=== PATIENT | female | born 1960 | race Caucasian/White ===

== ENCOUNTER → 2016-05-28 17:04 | Outpatient (CLI) | payer BC | END | disposition home or self-care (01) | LOC: D.MAMMO 04-30 16:15 | DX: Z12.31 Encounter for screening mammogram for malignant neoplasm of breast (principal) ==

== ENCOUNTER → 2016-07-25 08:47 | Outpatient (CLI) | payer BC | END | disposition home or self-care (01) | LOC: D.CT 08:47 | DX: R10.9 Unspecified abdominal pain (principal); K43.9 Ventral hernia without obstruction or gangrene ==

== ENCOUNTER → 2016-08-22 12:46 | Outpatient (CLI) | payer BC ==
[2016-08-22 15:14] LABS: AMYLASE - SERUM 38 U/L (25-115); LIPASE 192 U/L (73-393)
== END | disposition home or self-care (01) ==
LOC: D.LABREF 12:46
PROVIDERS: Family Medicine
DX: R10.9 Unspecified abdominal pain (principal)

== ENCOUNTER → 2017-06-02 17:08 | Outpatient (CLI) | payer BC | END | disposition home or self-care (01) | LOC: D.MAMMO 16:15 | DX: Z12.31 Encounter for screening mammogram for malignant neoplasm of breast (principal) ==

== ENCOUNTER 2017-12-04 10:12 | Emergency (ER) | payer BC ==
[~2017-12-04] VITALS: Ht 162.6 cm; Wt 79.5 kg
[2017-12-04 10:15] VITALS: Ht 162.6 cm; Wt 79.5 kg
[2017-12-04] MEDS ORDERED: LEVOXYL75 MCG PO (10:17)
[2017-12-04] MEDS ORDERED: COZAAR100 MG PO (10:17)
[2017-12-04] MEDS ORDERED: METFORMIN HCL500 M1 PO (10:17)
[2017-12-04] MEDS ORDERED: PRAVACHOL40 MG PO (10:17)
[2017-12-04] MEDS ORDERED: VICTOZA0.6 MG/0.1 SQ (10:17)
[2017-12-04] MEDS ORDERED: LEXAPRO20 MG PO (10:18)
[2017-12-04 13:05] LABS: BASOPHILS 0.8 % (0-2); EOSINOPHILS 1.7 % (0-7); HEMATOCRIT 42.2 % (36.0-48.0); HEMOGLOBIN 14.6 g/dL (12-16); IMMATURE GRANULOCYTES 1.1 % (0-5); LYMPHOCYTES 17.6 % (15-50); MCH 32.4 pg (26.0-34.0); MCHC 34.6 g/dL (31.0-37.0); MCV 93.8 fL (80.0-100.0); MEAN PLATELET VOLUME 9.6 fL (7.4-10.4); MONOCYTES 17.8 % (2-11); PLATELET COUNT 167 10x3/uL (130-400); WBC 3.5 10x3/uL (4.8-10.8)
[2017-12-04 13:17] LABS: ALBUMIN 3.7 g/dL (3.4-5.0); ALKALINE PHOSPHATASE 110 U/L (46-116); ALT (SGPT) 37 U/L (10-68); BILIRUBIN - TOTAL 0.44 mg/dL (0.2-1.3); CALC OSMOLALITY 278 mosm/kg (275-300); CALCIUM 9.2 mg/dL (8.5-10.1); CARBON DIOXIDE 26.8 mmol/L (21.0-32.0); CHLORIDE - SERUM 103 mmol/L (98-107); CREATININE - SERUM 0.7 mg/dL (0.6-1.3); GLUCOSE 91 mg/dL (74-106); POTASSIUM - SERUM 4.4 mmol/L (3.5-5.1); PROTEIN - SERUM 7.1 g/dL (6.4-8.2); SODIUM 139 mmol/L (136-145); UREA NITROGEN 14 mg/dL (7-18); eGFR NON AFRICAN AMERICAN > 90 mL/min (90-120)
[2017-12-04 13:54] VITALS: BP 132/80
== END 2017-12-04 13:55 | disposition home or self-care (01) ==
LOC: D.ER 10:12
PROVIDERS: Emergency Medicine
DX: S22.32XA Fracture of one rib, left side, initial encounter for closed fracture (principal); W18.30XA Fall on same level, unspecified, initial encounter; Y93.89 Activity, other specified; Y92.89 Other specified places as the place of occurrence of the external cause; H54.7 Unspecified visual loss; I63.81 Other cerebral infarction due to occlusion or stenosis of small artery; E11.9 Type 2 diabetes mellitus without complications

== ENCOUNTER → 2018-06-17 19:28 | Outpatient (CLI) | payer BC ==
[2017-12-04 10:15] VITALS: BMI 30.1
[~2018-06-17 19:28] MED LIST: COZAAR100 MG PO; LEVOXYL75 MCG PO; LEXAPRO20 MG PO; METFORMIN HCL500 M1 PO; PRAVACHOL40 MG PO; VICTOZA0.6 MG/0.1 SQ
== END | disposition home or self-care (01) ==
LOC: D.MAMMO 09:15
PROVIDERS: ATTEND Family Medicine
DX: Z12.31 Encounter for screening mammogram for malignant neoplasm of breast (principal)

== ENCOUNTER 2019-01-10 10:56 | Observation (INO) | payer BC ==
[~2019-01-10] VITALS: Ht 162.6 cm; Wt 80.0 kg
[2019-01-10] VITALS (7 sets, daily range): BP systolic 104–139; BP diastolic 66–85
--- NOTE | ~2019-01-10 | HEMODYNAMI ---
PATIENT:CARTER CHAKRABORTY MEDICAL RECORD: [id number] : 56 [facility]# [id number] ADMISSION DATE: 01/10/19 Generatedon:01/12/201913:08 Patient name: CARTER CHAKRABORTY Patient #: [id number] : 1960 Date of study: 01/12/2019 Page: Of Hemodynamic Procedure Report Patient Data Patient Demographics Procedure consent was obtained First Name: CARTER Gender: Female Last Name: MYLENE : 1960 Middle Initial: TEJAL Age: 58 year(s) Patient #: [id number] Race: SSN: [id number] Additional ID: [id number] Contact details Address: [address] [place] [address] DRIVE State: [place] City: [place] Zip code: [address] Admission Admission Data Admission Date: 01/10/2019 Admission Time: 14:27 Arrival Date: 01/10/2019 Arrival Time: 14:27 Admit Source: Emergency Insurance Payor: Private department health insurance Room #: D.2119 [facility] #: [id number] Lab Results Lab Result Date: 01/12/2019 Lab Result Time: 0:00 Biochemistry Name Units Result Min Max BUN mg/dl 14 --(--*-)-- 7 18 Creatinine mg/dl 0.9 --(-*--)-- 0.6 1.3 eGFR ml/min 67.78452 *-(----)-- 90 120 NONAFRICAN CBC Name Units Result Min Max Hemoglobin g/dl 15.2 --(-*--)-- 13.5 17.5 Procedure Procedure Types Cath Procedure Diagnostic Procedure [facility] w/Coronaries FFR/IVUS FFR Initial FFR Additional Sedation Charges Moderate Sedation up to 30 minutes PCI Procedure Coronary Stent Coronary Stent Initial x2 Coronary Stent Additional Procedure Description Procedure Date Procedure Date: 01/12/2019 Procedure Start Time: 12:28 Procedure End Time: 13:00 Procedure Staff Name Function Paris Reynaga RT Monitor Elian Talbert MD Performing Physician Thais Osborn RN Nurse Xiao Dalal RT Scrub Procedure Data Cath Procedure Fluoroscopy Diagnostic fluoroscopy Total fluoroscopy Time: 9.3 time: 9.3 min min Diagnostic fluoroscopy Total fluoroscopy dose: dose: 1349 mGy 1349 mGy Entry Location Entry Primary Successful Side Size Upsize Upsize Entry Closure Succes sful Closure Location (Fr) 1 (Fr) 2 (Fr) Remarks Device Remarks Radial Right 6 Fr Exoseal artery Short Estimated blood loss: 5 ml Diagnostic catheters Device Type Used For End Catheter Placement DIAGNOSTIC Vernon 110cm 5 Multi-vessel Fr catheter ([id number]) Angiography Procedure Complications No complications Procedure Medications Medication Administration Route Dosage 0.9% NaCl I.V. 100 ml/hr Oxygen etCO2 Nasal cannula 4 l/min Lidocaine 2% added to field 20 Heparin Flush Bag added to field 2 bags (1000units/500ml NS) Radial Cocktail added to field 1 syringe (Verapamil 2mg/Nitro 400mcg/Heparin 1500units) Versed I.V. 2 mg Fentanyl I.V. 50 mcg Heparin Bolus I.V. 4000 units Oxygen 6 l/min Plavix P.O. 75 mg Fentanyl I.V. 25 mcg Hemodynamics Rest HGB: 15.2 (g/dl) Heart Rate: 83 (bpm) Pressure Samples Time Site Value (mmHg) Purpose Heart Use Rate(bpm) 12:31 LV 70/14,29 Snapshot 85 Snapshots Pre Cath Intra NCS Post Cath Vital Signs Time Heart Resp SPO2 etCO2 NIBP (mmHg) Rhythm Pain Sedation Rate (ipm) (%) (mmHg) Status Level (bpm) 12:16:07 90 15 93 15.9 113/70(88) NSR 0 (11) 10(A) , No pain 12:20:12 83 24 94 27.2 114/72(93) NSR 0 (11) 10(A) , No pain 12:24:20 83 19 92 31 101/67(83) NSR 0 (11) 10(A) , No pain 12:28:24 82 17 91 27.2 93/63(84) NSR 0 (11) 9(A) , No pain 12:32:30 86 18 94 28.7 80/49(75) NSR 0 (11) 9(A) , No pain 12:36:29 88 18 93 32.4 91/54(69) NSR 0 (11) 9(A) , No pain 12:40:35 91 18 93 41.5 75/49(67) NSR 0 (11) 9(A) , No pain 12:44:33 91 17 93 36.3 93/54(70) NSR 0 (11) 9(A) , No pain 12:48:34 93 18 93 41.6 96/62(85) NSR 0 (11) 9(A) , No pain 12:52:36 95 19 93 40.8 101/64(79) NSR 7 (11) 10(A) , Very intense 12:57:21 103 22 93 21.9 135/81(109) NSR 0 (11) 10(A) , No pain Medications Time Medication Route Dose Verified Delivered Reason Not es Effectiveness by by 12:16:36 0.9% NaCl I.V. 100 Elian Thais used for ml/hr Gali Osborn television receiver analyzer 12:16:43 Oxygen etCO2 4 l/min Elian Thais used for Nasal Gali Osborn procedure cannula RN 12:16:48 Lidocaine 2% added 20ml Elian Elian for local to vial Gali Talbert MD anesthetic field 12:16:53 Heparin Flush added 2 bags Elian Elian used for Bag to Gali Talbert MD procedure (1000units/500ml field NS) 12:18:14 Radial Cocktail added 1 Elian Elian used for (Verapamil to syringe Gali Talbert MD procedure 2mg/Nitro field 400mcg/Hepari 12:24:00 Versed I.V. 2 mg Elian Thais for sedation Gali Osborn RN 12:24:07 Fentanyl I.V. 50 mcg Elian Thais for sedation Gali Osborn RN 12:34:52 Heparin Bolus I.V. 4000 Elian Thais for srinivas ified units Gali Osborn anticoagulation with Dr. CAROLANN Talbert 12:36:23 Oxygen simple 6 l/min Elian Thais used for mask Gali Osborn television receiver analyzer 12:40:28 Plavix P.O. 75 mg Elian Thais for Gali Osborn antiplatelet RN therapy 12:53:57 Fentanyl I.V. 25 mcg Elian Thais for sedation Gali Osborn accounting manager controller Log Time Note 12::54 Informed consent obtained and on chart 12::54 Admit Source: Emergency department 12:01:58 Arrival Date: 01/10/2019 2:27:00 PM 12:02:26 Insurance Payor : Private health insurance 12::54 Lab Result : eGFR NONAFRICAN 67.74455 ml/min 12::54 Lab Result : Hemoglobin 15.2 g/dl 12::54 Lab Result : BUN 14 mg/dl 12::54 Lab Result : Creatinine 0.9 mg/dl 12:07:16 ACC Patient presents with Stable Angina CCS Anginal Class 2--Slight limitation of ordinary activity. 12:07:21 Procedure Status Urgent Heart Cath (IP). 12:07:32 Diagnostic Cath Status : Urgent 12:07:53 Thais Osborn RN sent for patient. Start room use. 12::54 Time tracking: Regular hours (M-F 7:00 - 5:00) 12:07:57 Plan of Care:Hemodynamics will remain stable., Cardiac rhythm will remain stable., Comfort level will be maintained., Respiratory function will remain adequate., Patient/ family verbilizes understanding of procedure., Procedure tolerated without complication., Recovers from procedure without complications.. 12:09:53 Patient received from Med II to CCL 2 Alert and oriented. Tansferred to table in Supine position. 12:09:54 Correct patient and procedure confirmed by team. 12:09:54 Warm blankets applied, and sangeetha hugger turned on for patient comfort. 12:09:55 ECG and BP/O2 sat monitors applied to patient. 12:15:06 Vital chart was started 12:16:36 0.9% NaCl 100 ml/hr I.V. was administered by Thais Osborn RN; used for procedure; Verbal order read back and verified. 12:16:43 Oxygen 4 l/min etCO2 Nasal cannula was administered by Thais Osborn RN; used for procedure; Verbal order read back and verified. 12:16:48 Lidocaine 2% 20ml vial added to field was administered by Elian Talbert MD; for local anesthetic; Verbal order read back and verified. 12:16:53 Heparin Flush Bag (1000units/500ml NS) 2 bags added to field was administered by Elian Talbert MD; used for procedure; Verbal order read back and verified. 12:18:14 Radial Cocktail (Verapamil 2mg/Nitro 400mcg/Heparin 1500units) 1 syringe added to field was administered by Elian Talbert MD; used for procedure; Verbal order read back and verified. 12:20:07 Baseline sample Acquired. 12:20:11 Rhythm: sinus rhythm 12:20:13 Full Disclosure recording started 12:20:16 H&P Date Dictated: 01/12/2019 New H&P dictated by physician.. 12:20:18 Pre-op teaching completed and patient verbalized understanding. 12:20:18 Pre-procedure instructions explained to patient. 12:20:20 Family in patients room. 12:20:21 Patient NPO since Midnight. 12:20:48 Is the patient allergic to Iodine/contrast media? No. 12:20:49 Was the patient premedicated? Yes 12:20:50 Is patient on blood thinner?Yes 12:20:52 ACC The patient was administered the following blood thiners within the last 24 hours: ACCPlavix 12:20:54 Patient diabetic? Yes. 12:20:55 If diabetic: On Metformin? Yes 12:21:01 If on Metformin: Last Dose? 01/10/2019 12:21:07 Previous problem with sedation/anesthesia? No ? 12:21:08 Snore? Yes 12:21:10 Deviated septum? No 12:21:10 Sleep apnea? No 12:21:11 Opens mouth fully? No 12:21:14 Opens mouth fully? Yes 12:21:16 Airway obstruction? No ? 12:21:19 Dentures? No ? 12:21:23 Pre procedure: right dorsailis pedis pulse 2+ Normal; easily identifiable; not easily obliterated 12:21:25 Pre procedure: left dorsailis pedis pulse 2+ Normal; easily identifiable; not easily obliterated 12:21:28 Patient pain scale 0/10 ?. 12:21:33 IV patent on arrival in right antecubital with 0.9% NaCl at [facility] 12:21:35 Lab results completed and on chart. 12:21:43 Risk of Mortality: <0.1 12:21:46 Risk of blood transfusion: 0.1 12:21:50 Risk of KERRY: 1.6 12:21:56 Right Radial & Right Groin area was prepped with chlora-prep and draped in sterile fashion 12:21:57 Alarms reviewed by R. N. 12:21:58 Physician arrived 12:21:58 Sharps counted by scrub and verified by R.N. 12:21:59 --------ALL STOP TIME OUT------ 12:22:00 Final Timeout: patient, procedure, and site verified with staff and physician. All members of the team are in agreement. 12:22:02 Right Radial & Right Groin site verified by team. 12:22:05 Fire Safety Assessment: A--An alcohol-based skin anteseptic being used preoperatively., C--Open oxygen or nitrous oxide is being used., D--An ESU, laser, or fiber-optic light is being used. 12:22:09 Physical assessment completed. ASA score P 2 - A patient with mild systemic disease as per Elian Talbert MD. 12:22:16 2) 60-89 Mildly reduced kidney function, and other findings (as for stage 1) point to kidney disease. 12:22:19 Maximum allowable contrast dose (3.7 X eGFR X 0.75)188 ml. 12:22:23 Sedation plan: IV Moderate Sedation Medication:Versed, Fentanyl 12:22:30 Use device set Radial Dx or PCI 12:22:31 ACIST Syringe (99479) opened to sterile field. 12:22:32 ACIST Hand Control (02598) opened to sterile field. 12:22:32 Bag Decanter () opened to sterile field. 12:22:32 Medline Cath Pack ([id number]) opened to sterile field. 12:22:33 Tegaderm 4 x 4 (1626W) opened to sterile field. 12:22:33 ACIST Manifold (72993) opened to sterile field. 12:22:34 MBrace Wrist Support ([id number]) opened to sterile field. 12:22:36 SHEATH 6FR RAIN (9194355) opened to sterile field. 12:22:38 EMERALD Guide Wire (565-996) opened to sterile field. 12:23:34 Pt received from Arrayent II with SpO2 88% on RA. Dr. Talbert notified and 4LNC applied. All other VSS, will continue to monitor. 12:24:00 Versed 2 mg I.V. was administered by Thais Osborn RN; for sedation; Verbal order read back and verified. 12:24:07 Fentanyl 50 mcg I.V. was administered by Thais Osborn RN; for sedation; Verbal order read back and verified. 12:28:01 Procedure started. 12:28:06 Local anesthetic to right radial artery with Lidocaine 2% by Elian Talbert MD.INITIAL ACCESS ONLY 12:29:14 A DIAGNOSTIC Vernon 110cm 5 Fr catheter ([id number]) was advanced over the wire and used for Multi-vessel Angiography. 12:29:55 A 6 Fr Short sheath was inserted into the Right Radial artery 12:31:09 LV hemodynamics recorded. 12:31:10 LV gram done using CHI 12:31:13 Injector settings: Ml/sec: 5, Volume: 15, 12:31:20 EF : 60 % 12:32:30 LCA angiography performed. 12:32:34 Injector settings: Ml/sec: 3, Volume: 6, 12:32:45 RCA angiography performed. 12:32:47 Injector settings: Ml/sec: 3, Volume: 6, 12:32:49 Catheter removed. 12:32:50 Proceeding to intervention. 12:34:10 6 Fr ar 1 guide catheter was inserted over the wire 12:34:20 [place] Verrata Plus pressure wire (64667T) opened to sterile field. 12:34:20 GUIDE 6FR AR 1.0 catheter ([id number]) opened to sterile field. 12:34:21 INFLATOR Merit BasixCompak (VB8922) opened to sterile field. 12:34:52 Heparin Bolus 4000 units I.V. was administered by Thais Osborn RN; for anticoagulation; verified with Dr. Talbert Verbal order read back and verified. 12:35:13 FFR/IFR wire advanced. 12:35:16 Baseline FFR 1. 12:36:23 Oxygen 6 l/min simple mask was administered by Thais Osborn RN; used for procedure; Verbal order read back and verified. 12:36:32 pRCA lesion measured at 0.83 with IFR 12:36:49 Pre PCI Site: [place] pRCA has 70% stenosis. 12:36:57 ACC Pre-intervention TRICIA Flow is 3. 12:37:59 Place stent Inflation Number: 1 A COBRA RX 3.5 X 15 Stent was prepped and advanced across the Prox RCA 70. The stent was deployed at 17 ELIE for 0:10 (min:sec) 0. 12:38:56 Stent catheter was removed intact over wire. 12:39:09 Baseline FFR 1. 12:39:27 pRCA lesion measured at 0.99 with IFR 12:40:13 Wire removed. 12:40:14 Guide catheter removed. 12:40:28 Plavix 75 mg P.O. was administered by Thais Osborn RN; for antiplatelet therapy; Verbal order read back and verified. 12:40:29 GUIDE 6FR XB 3.5 catheter ([id number]) opened to sterile field. 12:40:37 FFR/IFR wire advanced. 12:40:39 Baseline FFR 1. 12:44:38 [place] Verrata Plus pressure wire (11078O) opened to sterile field. 12:45:46 Wire removed. 12:46:01 original IFR wire damaged; new verrata wire opened to sterile field 12:46:59 FFR/IFR wire advanced. 12:47:01 Baseline FFR 1. 12:47:12 mLAD lesion measured at 0.79 with IFR 12:48:36 Wire removed. 12:48:43 CHOICE PT Extra Support 182cm wire ([id number]) opened to sterile field. 12:48:44 choice pt wire advanced. 12:49:24 ACC Pre-intervention TRICIA Flow is 3. 12:49:30 Pre PCI Site: [place] mLAD has 80% stenosis. 12:49:34 Place stent Inflation Number: 1 A COBRA RX 2.5 X 30 Stent was prepped and advanced across the Mid LAD 80. The stent was deployed at 15 ELIE for 0:10 (min:sec) 0. 12:50:28 Stent catheter was removed intact over wire. 12:50:30 Post PCI Site: [place] mLAD has 0% stenosis. 12:51:15 Wire redirected to ramus. 12:53:57 Fentanyl 25 mcg I.V. was administered by Thais Osborn RN; for sedation; Verbal order read back and verified. 12:55:52 Pre PCI Site: [place] Ramus has 90% stenosis. 12:55:54 ACC Pre-intervention TRICIA Flow is 3. 12:55:57 Place stent Inflation Number: 1 A COBRA RX 2.5 X 08 Stent was prepped and advanced across the Ramus 90. The stent was deployed at 11 ELIE for 0:10 (min:sec) . 12:56:05 Post PCI Site: [place] Ramus has 0% stenosis. 12:57:35 Stent catheter was removed intact over wire. 12:57:36 Wire removed. 12:57:37 Guide catheter removed. 12:57:56 Sheath removed intact; hemostasis achieved with Exoseal to the Right Radial artery. 12:57:58 Procedure ended.(Physican Out) 12:58:13 Fluoroscopy time 09.30 minutes. 12:58:17 Fluoroscopy dose: 1349 mGy 12:58:17 Flurop Dose total: 1349 12:58:24 Dose Area Product 33152 mGy/cm. 12:59:36 [place] band inflated with 10cc of air. 12:59:36 Insertion/operative site no bleeding no hematoma. 12:59:38 ZEPHYR REGULAR TR BAND (016947) opened to sterile field. 12:59:45 Post Procedure Pulses reassessed and unchanged 12:59:47 Post procedure rhythm: unchanged. 12:59:50 Estimated blood loss: 5 ml 12:59:51 Post procedure instruction explained to patient.Patient verbalizes understanding. 12:59:52 Patient needs reinforcement of post procedure teaching. 13:00:19 Procedure and supply charges have been captured, reviewed, submitted and are correct. 13:00:19 Procedure type changed to Cath procedure, Diagnostic procedure, [facility], [facility] w/Coronaries, FFR/IVUS, FFR Initial, FFR Additional, Sedation Charges, Moderate Sedation up to 30 minutes, PCI procedure, Coronary Stent, Coronary Stent Initial x2, Coronary Stent Additional 13:00:24 Procedure Complication : No complications 13:00:26 Vital chart was stopped 13:00:28 [facility] Findings: MVD- PCI performed (see procedure note) 13:00:46 Operative report dictated upon procedure completion. 13:00:47 See physician's report for complete and final results. 13:00:51 Report given to [facility]. 13:00:54 Patient transfered to [facility] with Stretcher. 13:00:56 Full Disclosure recording stopped 13:00:56 Procedure ended. 13:01:03 ACC-PCI Only Patient was given prescriptions, or instructed by Elian Talbert MD to start/continue the following medications upon discharge: Plavix 13:01:05 End room use (Document Last) 13:01:14 ACT drawn and resulted at 266 seconds. (normal therapeutic range 180-240 seconds). Intervention Summary Intervention Notes Time ActionType Lesion and Equipment Action# Pressure Duration Attributes Used 12:37:59 Place stent Prox RCA COBRA RX 1 17 00:10 3.5 X 15 Stent 12:49:34 Place stent Mid LAD COBRA RX 1 15 00:10 2.5 X 30 Stent 12:55:57 Place stent Ramus COBRA RX 1 11 00:10 2.5 X 08 Stent Device Usage Item Name Manufacture Quantity Catalog Number Hospital Part Current Minimal Lot# / Charge Number Stock Stock Serial# Code ACIST Syringe Acist 1 68156 807632 952073 176067 20 (04749) Medical Systems Inc Medline Cath Medline 1 [id number] 735251 13008 517165 5 Pack ([id number]) Bag Decanter Microtek 1 2002S 885598 18259 448039 5 (2002S) Medical Inc. ACIST Hand Acist 1 34447 369212 808560 870659 5 Control Medical (32473) Systems Inc ACIST Manifold Acist 1 11471 748298 911240 196762 5 (05298) Medical Systems Inc Tegaderm 4 x 4 3M 1 1626W 643487 424840 028613 5 (1626W) MBrace Wrist Advanced 1 140-0250-00 566843 50281 432290 5 Support Vascular ([id number]) Dynamics SHEATH 6FR Cardinal 1 7823753 108851 9133116 886384 5 RAIN (1489259) Health EMERALD Guide Cardinal 1 502-455 004237 475860 190695 5 Wire (136-455) Health DIAGNOSTIC Terumo 1 40-1269 253347 558856 625948 5 Vernon 110cm 5 Fr catheter (350509) GUIDE 6FR AR Medtronic 1 [id number] 222403 95486 824877 1 1.0 catheter (RP4CQ68) [place] 2 29229R 456561 745236200 740599 5 Verrata Plus pressure wire (75578W) INFLATOR Merit Merit 1 ST1746 307846 513710 942906 15 [facility] (MP8329) COBRA RX 3.5 X Celonova 1 130152 069767506 2021530 0 [id number] 15 stent Biosciences () GUIDE 6FR XB Cardinal 1 32288141 544796 989815 183693 2 3.5 catheter [facility] ([id number]) CHOICE PT [place] 1 [id number] 037864 547333 613054 5 Extra Support Scientific 182cm wire ([id number]) COBRA RX 2.5 X Celonova 1 483733 [id number] 618836 7 [id number] 30 stent Biosciences () COBRA RX 2.5 X Celonova 1 271232 162252019 5157365 0 3 [id number] 08 stent Biosciences () ZEPHYR REGULAR Cardinal 1 837622 099314 9031107 583598 5 Instabug (946270) Signature Audit [place] Stage Time Signature Unsigned Intra-Procedure 01/12/2019 Paris Reynaga 1:06:05 PM RT(R) Intra-Procedure 01/12/2019 Thais Osborn 1:07:04 PM RN Intra-Procedure 01/12/2019 Paris Reynaga RT(R) 1:07:23 PM RT(R) 01/12/2019 1:08:15 PM Intra-Procedure 01/12/2019 Elian Talbert 1:08:30 PM Signatures Monitor : Paris Reynaga RT Signature : Date : Time : Performing Physician : Signature : Elian Talbert MD Date : Time : Nurse : Thais Osborn RN Signature : Date : Time : [facility] [address] [address]
[2019-01-10 11:39] LABS: APTT 28.2 SECONDS (22.8-39.4); CALC OSMOLALITY 283 mosm/kg (275-300); CALCIUM 8.7 mg/dL (8.5-10.1); CARBON DIOXIDE 27.5 mmol/L (21.0-32.0); CHLORIDE - SERUM 107 mmol/L (98-107); CREATININE - SERUM 0.7 mg/dL (0.6-1.3); GLUCOSE 140 mg/dL (74-106); INR 1.07 (0.85-1.17); PROTIME 13.4 SECONDS (11.6-15.0); SODIUM 141 mmol/L (136-145); UREA NITROGEN 16 mg/dL (7-18); eGFR NON AFRICAN AMERICAN 90 mL/min (90-120)
[2019-01-10 11:47] LABS: BASOPHILS 0.5 % (0-2); HEMATOCRIT 40.5 % (36.0-48.0); HEMOGLOBIN 13.4 g/dL (12-16); IMMATURE GRANULOCYTES 0.4 % (0-5); MCH 32.1 pg (26.0-34.0); MCHC 33.1 g/dL (31.0-37.0); MCV 97.1 fL (80.0-100.0); MEAN PLATELET VOLUME 9.6 fL (7.4-10.4); MONOCYTES 7.7 % (2-11); NEUTROPHILS 64.4 % (40-80); RBC 4.17 10x6/uL (4.00-5.40); RDW 13.6 % (11.5-14.5); WBC 5.5 10x3/uL (4.8-10.8)
[2019-01-10 11:50] LABS: PLATELET COUNT 207 10x3/uL (130-400)
[2019-01-10 11:54] LABS: ALBUMIN 3.6 g/dL (3.4-5.0); ALKALINE PHOSPHATASE 116 U/L (46-116); ALT (SGPT) 39 U/L (10-68); BILIRUBIN - TOTAL 0.54 mg/dL (0.2-1.3); CKMB 0.4 U/L (0.0-3.6); CREATINE KINASE 67 UL (21-215); MAGNESIUM - SERUM 1.5 mg/dL (1.8-2.4); PROTEIN - SERUM 7.1 g/dL (6.4-8.2)
[2019-01-10 11:58] LABS: TROPONIN-I < 0.017 ng/mL (0.000-0.060)
[2019-01-10 16:22] LABS: CKMB 0.3 U/L (0.0-3.6); CREATINE KINASE 70 UL (21-215)
[2019-01-10 16:34] LABS: TROPONIN-I < 0.017 ng/mL (0.000-0.060)
[2019-01-10] MEDS ORDERED: GLUCOPHAGE500 MG PO (16:34)
[2019-01-10] MEDS ORDERED: LIPITOR20 MG PO (16:35)
[2019-01-10] MEDS ORDERED: OZEMPIC SQ (16:36)
--- NOTE | 2019-01-10 19:31 | NUR ---
RECIEVED BEDSIDE SHIFT REPORT/ ALERT AND ORIENTED X4. UP AD CHARANJIT TO B/R. SPOUSE AT BEDSIDE. TELEMETRY IN PLACE. C/O CHEST PAIN AND HEAD ACHE. IV TO RIGHT AC SL.. DENIES ANY OTHER NEEDS AT THIS TIME.
[2019-01-10 21:45] LABS: CKMB 0.3 U/L (0.0-3.6); CREATINE KINASE 57 UL (21-215); TROPONIN-I < 0.017 ng/mL (0.000-0.060)
[2019-01-11 00:30] VITALS: BP 101/61
[2019-01-11 04:00] VITALS: BP 104/64
[2019-01-11 04:41] LABS: BASOPHILS 0.2 % (0-2); EOSINOPHILS 1.9 % (0-7); HEMATOCRIT 39.9 % (36.0-48.0); HEMOGLOBIN 13.1 g/dL (12-16); IMMATURE GRANULOCYTES 0.4 % (0-5); LYMPHOCYTES 26.4 % (15-50); MCH 32.2 pg (26.0-34.0); MCHC 32.8 g/dL (31.0-37.0); MEAN PLATELET VOLUME 9.9 fL (7.4-10.4); NEUTROPHILS 63.1 % (40-80); PLATELET COUNT 207 10x3/uL (130-400); RBC 4.07 10x6/uL (4.00-5.40); RDW 13.8 % (11.5-14.5); WBC 5.2 10x3/uL (4.8-10.8)
[2019-01-11 05:10] LABS: ALBUMIN 3.3 g/dL (3.4-5.0); ALKALINE PHOSPHATASE 104 U/L (46-116); ALT (SGPT) 39 U/L (10-68); CALC OSMOLALITY 282 mosm/kg (275-300); CALCIUM 8.1 mg/dL (8.5-10.1); CARBON DIOXIDE 26.7 mmol/L (21.0-32.0); CHLORIDE - SERUM 107 mmol/L (98-107); CKMB 0.2 U/L (0.0-3.6); CREATINE KINASE 53 UL (21-215); CREATININE - SERUM 0.6 mg/dL (0.6-1.3); GLUCOSE 99 mg/dL (74-106); POTASSIUM - SERUM 3.9 mmol/L (3.5-5.1); PROTEIN - SERUM 6.7 g/dL (6.4-8.2); SODIUM 142 mmol/L (136-145); UREA NITROGEN 13 mg/dL (7-18); eGFR NON AFRICAN AMERICAN > 90 mL/min (90-120)
[2019-01-11 05:11] LABS: TROPONIN-I < 0.017 ng/mL (0.000-0.060)
--- NOTE | 2019-01-11 07:48 | NUR ---
ASSESSMENT COMPLETED. AWAKE AND ALERT. ORIENTED TIMES 3. C/0 HEADACHE. GIVEN TYLENOL 650MG P.O. FOR RELIEF. TELEMERTY SHOWS SR. SL TO RIGHT AC. NPO UNTILL SEEN BY DOCTOR. DENIES ANY CHEST PAIN. UP AB CHARANJIT. SR UP WITH CALL LIGHT IN REACH
[2019-01-11 08:00] VITALS: BP 102/54
[2019-01-11 08:36] VITALS: Ht 162.6 cm; Wt 80.0 kg
[2019-01-11 12:00] VITALS: BP 101/62
--- NOTE | 2019-01-11 12:36 | NUR ---
LYING QUIETLY. DENIES ANY NEEDS. WILL MONITOR
--- NOTE | 2019-01-11 12:53 | NUR ---
I have reviewed this patient and I concur with the Shift Assessment completed by the Licensed Practical Nurse today this shift.
[2019-01-11 20:00] VITALS: BP 125/65
[2019-01-12] VITALS: BP 107/65
[2019-01-12 04:00] VITALS: BP 112/66
[2019-01-12 05:04] LABS: BASOPHILS 0.5 % (0-2); EOSINOPHILS 1.5 % (0-7); HEMATOCRIT 46.5 % (36.0-48.0); HEMOGLOBIN 15.2 g/dL (12-16); IMMATURE GRANULOCYTES 0.3 % (0-5); LYMPHOCYTES 32.9 % (15-50); MCH 32.5 pg (26.0-34.0); MCHC 32.7 g/dL (31.0-37.0); MCV 99.6 fL (80.0-100.0); MEAN PLATELET VOLUME 9.6 fL (7.4-10.4); MONOCYTES 9.3 % (2-11); NEUTROPHILS 55.5 % (40-80); RBC 4.67 10x6/uL (4.00-5.40); RDW 13.9 % (11.5-14.5); WBC 6.5 10x3/uL (4.8-10.8)
[2019-01-12 05:09] LABS: PLATELET COUNT 259 10x3/uL (130-400)
[2019-01-12 05:19] LABS: ALBUMIN 3.8 g/dL (3.4-5.0); ANION GAP 9.2 mmol/L (8-16); BILIRUBIN - TOTAL 0.61 mg/dL (0.2-1.3); CALCIUM 8.7 mg/dL (8.5-10.1); CARBON DIOXIDE 29.6 mmol/L (21.0-32.0); POTASSIUM - SERUM 3.8 mmol/L (3.5-5.1); PROTEIN - SERUM 7.9 g/dL (6.4-8.2)
[2019-01-12 05:33] LABS: CREATININE - SERUM 0.9 mg/dL (0.6-1.3)
--- NOTE | 2019-01-12 07:10 | NUR ---
REPORT RECEIVED FROM WOOD MILLER AND PATIENT CARE ASSUMED. PATIENT LAYNG IN BED ON BACK WITH EYES CLOSED AND BREATHING EVENLY. PATIENT IS STABLE AND VSS. GABRIELLA CONTINUE WITH PLAN OF CARE. SR UP X 2 BED IN LOW POSITION AD CALL LIGHT IN REACH.
[2019-01-12 09:12] VITALS: BP 109/59
--- NOTE | 2019-01-12 09:47 | NUR ---
PATIET RESTING QUIETLY WITH FAMILY AT BS. WILL CONTINUE TO MONITOR SR UP X 2 BED IN LOW POSITION AND CALL LIGHT IN REACH.
--- NOTE | 2019-01-12 10:41 | CN ---
PATIENT NAME:CARTER CHAKRABORTY MEDICAL RECORD: [id number] : 56 LOCATION:D. D.2119 ADMIT DATE: 01/10/19 ACCOUNT: [id number] CONSULTING PHYSICIAN: SEUN BLACKMON MD REFERRING PHYSICIAN: JIMMY GARNER MD DATE OF CONSULTATION: 01/11/2019 DIAGNOSES: 1. Angina. 2. Hypertension. 3. Hyperlipidemia. 4. Family history of coronary artery disease. 5. Noninsulin-dependent diabetes. HISTORY OF PRESENT ILLNESS: Mrs. Chakraborty presents with chest discomfort, it has been going on for 2 days. She has no previous cardiac history. Her chest discomfort is a relatively typical anginal discomfort, a dull aching sensation radiating to her back. It started a few days ago, it has gotten worse. She had episodes at rest yesterday. She has had some minor episodes overnight. Her EKG is with no ST-T abnormalities. PHYSICAL EXAMINATION: CONSTITUTIONAL/GENERAL APPEARANCE: Well nourished, well developed, appears stated age. EYES: Lids and conjunctivae noninjected. No discharge. No pallor. ENT: Lips within normal limit. No cyanosis. No pallor. NECK: Carotid arteries, bilateral normal upstroke. No bruits. No thrills. No jugular venous pressure or distention. CERVICAL LYMPH NODES: Nontender. Nonenlarged. THYROID: Not enlarged. No nodules. CARDIOVASCULAR: Precordial exam, nondisplaced. No heaves or pericardial thrills. Rate and rhythm, regular. Heart sounds, normal S1, normal S2. No S3, no gallop, no rub. Systolic murmur, not heard. Diastolic murmur, not heard. RESPIRATORY: Respiratory effort, unlabored. Normal curvature. No thoracic deformity. No chest wall tenderness. Percussion, resonant. Auscultation, clear. No wheezes, no rales, no rhonchi. ABDOMEN: Soft, nondistended, nontender. No abdominal pain, no vomiting and normal appetite. MUSCULOSKELETAL: No joint tenderness, normal gait, normal tone. SKIN: Warm and dry. OVERALL IMPRESSION: Chest pain compatible with angina, escalating fashion. The troponin is normal. EKG is with no significant ST-T abnormalities. We will risk stratify with stress testing, Cardiolite imaging. Further care depends upon findings of the stress test. TRANSINT:[id number] Voice Confirmation ID: [id number] DOCUMENT ID: [id number] CONSULT REPORT [id number] CARTER CHAKRABORTY, SEUN PAYNE at 1041 CC: [id number] DICTATION DATE: 01/11/19 0838 LAW INSTRUCTOR: 01/11/19 1019 ADM IN [id number] [place] [address]
--- NOTE | 2019-01-12 10:41 | ST ---
PATIENT:CARTER CHAKRABORTY MEDICAL RECORD: [id number] SEX: F LOCATION:D. D.211 ORDER #: ADMISSION DATE: 01/10/19 AGE OF PATIENT: 58 REFERRING PHYSICIAN: INTERPRETING PHYSICIAN: SEUN BLACKMON MD DATE OF SERVICE: 01/11/2019 PROCEDURE: Nuclear stress test. INDICATION: Angina. TECHNIQUE: She was exercised under standard Fred protocol with 27 mCi of sestamibi injected at peak stress, 12 mCi used previously for rest images. FINDINGS: Gated SPECT reveals a preserved ejection fraction at 70%. Good wall motioning and thickening and brightening throughout all segments. SPECT imaging Cardiolite was used as myocardial perfusion agent. There were definite reversible changes inferiorly and apically. This includes the basal, mid, apical, inferior segments as well as the apex itself. The degree of reversibility is mild to moderate. The amount of myocardium involved is moderate to large. OVERALL IMPRESSION: This is an abnormal nuclear stress test of intermediate risk with a relatively large perfusion defect of reversible ischemia inferiorly and apically suggestive of hemodynamically significant coronary artery disease. TRANSINT:[id number] Voice Confirmation ID: [id number] DOCUMENT ID: [id number] SEUN BLACKMON MD at 1041 CC: [id number] DICTATION DATE: 01/11/19 1603 SUPERVISOR PLASTICS: 01/12/19 0724 ADM IN [id number] [place] [address]
--- NOTE | 2019-01-12 11:10 | NUR ---
PHONE CALL RECEIVED FROM BAD CLOTH CHECKER TEAM TO PRE OP PATIENT. PATIENT PRE-OP ACCORDING TO MAR. PATIENT IS STABLE AND VSS. PATIENT DENIES ANY NEEDS OR PAIN FAMILY AT BS. WILL TQDT1LDT TO MONITOR. SR UP X 2 BED IN LOW POSITION AND CALL LIGHT IN REACH.
--- NOTE | 2019-01-12 12:00 | NUR ---
PATIENT IS STABLE VSS. PATIENT DENIES ANY NEEDS OR PAIN.FAMILY AT BS. PATIENT TO GROOVING MACHINE OPERATOR VIA HOSPITAL BED AND HOSPITAL PERSONNEL.
[2019-01-12 12:08] VITALS: BP 120/73
--- NOTE | 2019-01-12 13:30 | NUR ---
PATIENT RETURNED FROM [facility] VIA [facility] BED AND PIN MAKER TEAM. PATIENT IS AWAKE, SLEEPY AND ORIENTED X 4. TR BAND TO RT RADIAL WITH DRSG C/D/I. PATIENT DENIES ANY NEEDS OR PAIN. FAMILY AT BS. VSS. VITALS SET UP FOR FREQUENT VITALS. WILL CONTINUE TO MONITOR. SR UP X 2 BED IN LOW POSITION AND CALL LIGHT IN REACH.
--- NOTE | 2019-01-12 15:43 | NUR ---
PATIENT RESTING COMFORTABLY IN BED LAYING ON BACK. AIR COMPLTELY REMOVED FROM TR BAND. NO BLEEDING OR HEMATOMA NOTED. SMALL AMOUNT OF BRUISING . PATIENT IS STABLE AND VSS. WILL CONTINUE TO MONITOR. SR UP X 2 BED IN LOW POSITION AND CALL LIGHT IN REACH.
--- NOTE | 2019-01-12 15:54 | NUR ---
DR BLACKMON IN ROOM . NEW ORDERS RECEVIED. PATIENT IS STABLE AND VSS. WILL CONTINUE TO MONITOR. SR UP X 2 BED IN LOW POSITION AND CALL LIGHT IN REACH.
[2019-01-12 17:11] VITALS: BP 97/57
--- NOTE | 2019-01-12 17:26 | NUR ---
PATIENT IS STABLE AND UNCHANGED. PATIENT DENIES ANY NEEDS OR PAIN. FAMILY AT BS. SMALL BRUISING AT RT RADIAL. NO BLEEDING OR HEMATOMA NOTED. WILL CONTINUE TO MONITOR. SR UP X 2 BED IN LOW POSITION AND CALL LIGHT IN REACH.
[2019-01-12] MEDS ORDERED: PLAVIX75 MG PO (19:10)
--- NOTE | 2019-01-13 08:54 | MORECARE ---
CASE MANAGEMENT DISCHARGE SUMMARY PATIENT: CARTER CHAKRABORTY UNIT: [id number] ADM DATE: 01/10/19 AGE: 58 : 56 SEX: F ROOM/BED: D.4341 AUTHOR: SURESH SANCHEZ PHYSICIAN: REFERRING PHYSICIAN: JIMMY GARNER MD DATE OF SERVICE: 01/13/19 Discharge Plan Patient Name: CARTER CHAKRABORTY Facility: [facility]:[place] : 1960 Planned Disposition: Home Anticipated Discharge Date: 01/12/19 Discharge Date: 01/12/2019 Expected LOS: 2 Initial Reviewer: [email or web address] Initial Review Date: 01/13/2019 Generated: 01/13/19 9:54 am Patient Name: CARTER CHAKRABORTY Page [id number] at 0854 All edits/amendments must be made on the electronic document DICTATION DATE: 01/13/1954 COKE WHEELER: LYNDSEY 01/13/19 0854 RPT#: [id number] DC DATE:01/12/19 STATUS: DIS IN [facility] [address] [place] [address] END OF REPORT
--- NOTE | 2019-01-15 10:05 | OP ---
PATIENT NAME: CARTER CHAKRABORTY MEDICAL RECORD: [id number] :56 LOCATION:D.M2 D.2119 ADMISSION DATE:01/10/19 SURGEON: SEUN BLACKMON MD DATE OF OPERATION: 01/12/2019 PROCEDURES: 1. PTCA and stent to the RCA. 2. PTCA and stent to the LAD. 3. PTCA and stent to the left circumflex and ramus intermedius. 4. Left heart catheterization. 5. Selective coronary angiography. 6. Left ventriculogram. INDICATIONS: Unstable angina and coronary artery disease. PROCEDURE PERFORMED: Informed consent was obtained after detailed description of risks, benefits as well as alternative therapies, the patient elected to proceed with angiogram and angioplasty. Right radial area was prepped and draped in normal sterile fashion. Right radial artery was cannulated via modified Seldinger technique with placement of 6-Albanian sheath. All catheters exchanged through this sheath. FINDINGS: Left ventriculogram was performed in standard 30-degree CHI view, reveals good cardiac wall motion, ejection fraction 50%. SELECTIVE CORONARY ANGIOGRAPHY: 1. Left main is with no significant angiographic disease. 2. Left anterior descending has a long area of 80% stenosis and IFR was abnormal at 0.89. 3. Left circumflex has a ramus intermedius that has 90% stenosis at its ostium. 4. The right coronary has a 70+ percent stenosis proximally and IFR was abnormal at 0.83. PTCA AND STENT OF THE RCA: The stent used was a 3.5 x 18 mm Cobra. Result was 0% residual stenosis. IFR normal up to 0.99. PTCA AND STENT OF THE LAD: The stent used was a 2.5 x 30 mm Cobra. Result was 0% residual stenosis. PTCA AND STENT OF THE RAMUS INTERMEDIUS: The stent used was a 2.5 x 8 mm Cobra. Result was 0% residual stenosis. OVERALL IMPRESSION: Successful percutaneous transluminal coronary angioplasty stent of the left anterior descending, RCA, and circumflex, ramus intermedius all going from 70% to 90% initial stenosis to 0% residual. TRANSINT:[id number] Voice Confirmation ID: [id number] DOCUMENT ID: [id number] OPERATIVE REPORT [id number] ALIYACARTER MEDINASEUN LOZADA MD at 1005 CC: [id number] DICTATION DATE: 01/12/19 1650 FUNCTIONAL ARCHITECT: 01/13/19 0114 DIS IN 01/12/19 [facility] [address] [place] [id number]
== END 2019-01-12 19:48 | disposition home or self-care (01) ==
LOC: D.ER 10:56 → D.M2 14:27 → OBSVTIME 01-12 19:45 → D.M2 01-12 19:48
PROVIDERS: Emergency Medicine; ADMIT Internal Medicine Nephrology; ATTEND Internal Medicine Nephrology
DX: R07.9 Chest pain, unspecified (principal); E11.9 Type 2 diabetes mellitus without complications; F32.9 Major depressive disorder, single episode, unspecified; E03.9 Hypothyroidism, unspecified; K50.90 Crohn's disease, unspecified, without complications; K21.9 Gastro-esophageal reflux disease without esophagitis; E78.5 Hyperlipidemia, unspecified; I10 Essential (primary) hypertension; E16.2 Hypoglycemia, unspecified; R91.1 Solitary pulmonary nodule; R06.09 Other forms of dyspnea; I20.0 Unstable angina

== ENCOUNTER 2019-01-14 17:18 | Observation (INO) | payer BC ==
[~2019-01-14] VITALS: Ht 162.6 cm; Wt 80.1 kg
[~2019-01-14 17:18] MED LIST changes: +GLUCOPHAGE500 MG PO; +LIPITOR20 MG PO; +OZEMPIC SQ; +PLAVIX75 MG PO
[2019-01-14 17:51] VITALS: BP 151/87
[2019-01-14 17:51] LABS: BASOPHILS 0.4 % (0-2); EOSINOPHILS 1.9 % (0-7); HEMATOCRIT 40.3 % (36.0-48.0); HEMOGLOBIN 13.7 g/dL (12-16); IMMATURE GRANULOCYTES 0.8 % (0-5); LYMPHOCYTES 27.3 % (15-50); MCH 32.7 pg (26.0-34.0); MCV 96.2 fL (80.0-100.0); MEAN PLATELET VOLUME 9.3 fL (7.4-10.4); MONOCYTES 10.3 % (2-11); NEUTROPHILS 59.3 % (40-80); RBC 4.19 10x6/uL (4.00-5.40); RDW 13.5 % (11.5-14.5); WBC 5.1 10x3/uL (4.8-10.8)
[2019-01-14 17:57] LABS: PLATELET COUNT 196 10x3/uL (130-400)
[2019-01-14 18:00] VITALS: BP 115/81
[2019-01-14 18:00] LABS: CALC OSMOLALITY 284 mosm/kg (275-300); CALCIUM 9.1 mg/dL (8.5-10.1); CARBON DIOXIDE 26.3 mmol/L (21.0-32.0); CHLORIDE - SERUM 107 mmol/L (98-107); CREATININE - SERUM 0.7 mg/dL (0.6-1.3); GLUCOSE 100 mg/dL (74-106); POTASSIUM - SERUM 3.9 mmol/L (3.5-5.1); SODIUM 143 mmol/L (136-145); UREA NITROGEN 13 mg/dL (7-18); eGFR NON AFRICAN AMERICAN 90 mL/min (90-120)
[2019-01-14 18:16] LABS: ALBUMIN 3.8 g/dL (3.4-5.0); ALKALINE PHOSPHATASE 118 U/L (46-116); ALT (SGPT) 33 U/L (10-68); BILIRUBIN - TOTAL 0.47 mg/dL (0.2-1.3); CKMB 0.7 U/L (0.0-3.6); CREATINE KINASE 77 UL (21-215); MAGNESIUM - SERUM 1.4 mg/dL (1.8-2.4); PRO BNP 124 pg/mL (0-125); PROTEIN - SERUM 7.2 g/dL (6.4-8.2); TROPONIN-I 0.028 ng/mL (0.000-0.060)
[2019-01-14 18:19] LABS: C-REACTIVE PROTEIN < 0.2 mg/dL (0.0-0.9)
--- NOTE | 2019-01-14 19:16 | NUR ---
HAND OFF REPORT RECEIVED FROM CAROLANN MCKEON USING SBAR COMMUNICATION. PT DENIES ANY NEEDS AT PRESENT.
[2019-01-14] MEDS ORDERED: BAYER CHEWABLE81 MG PO (20:47)
[2019-01-14 23:09] VITALS: BP 175/74; BMI 30.3
--- NOTE | 2019-01-14 23:16 | NUR ---
RECIEVED REPORT FROM TOM RN IN ER. ARRIVED TO FLOOR IN W/C. ALERT AND ORIETNED X4. SPOUSE AT BEDSIDE. ANSWERS QUESTIONS APPROPRIATLY. IV TO LEFT FA SL.. O2@ 2 LITERS PER N/C IN PLACE. DENIES ANY NEEDS AT THIS TIME.
[2019-01-15 00:15] VITALS: BP 123/76
[2019-01-15 04:18] VITALS: BP 118/70
[2019-01-15 05:32] LABS: BASOPHILS 0.2 % (0-2); EOSINOPHILS 2.8 % (0-7); HEMATOCRIT 38.3 % (36.0-48.0); HEMOGLOBIN 12.7 g/dL (12-16); IMMATURE GRANULOCYTES 0.2 % (0-5); LYMPHOCYTES 27.7 % (15-50); MCH 32.2 pg (26.0-34.0); MCHC 33.2 g/dL (31.0-37.0); MEAN PLATELET VOLUME 9.8 fL (7.4-10.4); MONOCYTES 9.4 % (2-11); NEUTROPHILS 59.7 % (40-80); PLATELET COUNT 182 10x3/uL (130-400); RBC 3.95 10x6/uL (4.00-5.40)
[2019-01-15 06:17] LABS: CALC OSMOLALITY 286 mosm/kg (275-300); CALCIUM 8.7 mg/dL (8.5-10.1); CARBON DIOXIDE 26.9 mmol/L (21.0-32.0); CHLORIDE - SERUM 109 mmol/L (98-107); CKMB 0.5 U/L (0.0-3.6); CREATINE KINASE 58 UL (21-215); CREATININE - SERUM 0.7 mg/dL (0.6-1.3); GLUCOSE 114 mg/dL (74-106); POTASSIUM - SERUM 3.6 mmol/L (3.5-5.1); SODIUM 144 mmol/L (136-145); TROPONIN-I 0.042 ng/mL (0.000-0.060); UREA NITROGEN 11 mg/dL (7-18); eGFR NON AFRICAN AMERICAN 90 mL/min (90-120)
--- NOTE | 2019-01-15 07:15 | NUR ---
RECEIVED PT IN BED AAOX4 RESP UNLABORED SKIN W/D COLOR WNL DENIES ANY PAIN OR NEEDS AT THIS TIME NAD NOTED
[2019-01-15 09:10] VITALS: BP 104/67
[2019-01-15 10:12] VITALS: Ht 162.6 cm; Wt 80.1 kg
[2019-01-15] MEDS ORDERED: ISOSORBIDE MONO30 M1 PO (10:48)
--- NOTE | 2019-01-15 11:38 | NUR ---
REVIEWED DISCHARGE INSTRUCTIONS WITH PT STATES UNDERSTANDING COPY GIVEN DCD SALINE LOCK TO RAC WITH IV CATHETER INTACT SITE FREE OF REDNESS OR EDEMA PT DISCHARGED HOME LEFT UNIT VIA WC IN STABLE CONDITION WITH ALL PERSONAL BELONGINGS
--- NOTE | 2019-01-17 09:27 | MORECARE ---
CASE MANAGEMENT DISCHARGE SUMMARY PATIENT: CARTER CHAKRABORTY UNIT: [id number] ADM DATE: 01/14/19 AGE: 58 : 56 SEX: F ROOM/BED: D.2114 AUTHOR: SURESH SANCHEZ PHYSICIAN: REFERRING PHYSICIAN: SEUN BLACMKON MD DATE OF SERVICE: 01/17/19 Discharge Plan Patient Name: CARTER CHAKRABORTY [facility] : 1960 Planned Disposition: Home Anticipated Discharge Date: 01/15/19 Discharge Date: 01/15/2019 Expected LOS: 1 Initial Reviewer: [email or web address] Initial Review Date: 01/17/2019 Generated: 01/17/19 10:27 am Patient Name: CARTER CHAKRABORTY Page [id number] at 0927 All edits/amendments must be made on the electronic document DICTATION DATE: 01/17/19926 PUBLICATIONS WRITER: LYNDSEY 01/17/19926 RPT#: [id number] DC DATE:01/15/19 STATUS: DIS IN [facility] [address] [place] [address] END OF REPORT
--- NOTE | 2019-01-17 09:28 | DS ---
PATIENT:CARTER CHAKRABORTY :56 MEDICAL RECORD: [id number] DISCHARGE SUMMARY ADMISSION DATE: 01/14/19 DISCHARGE DATE: 01/15/19 DIAGNOSES: 1. Angina. 2. Coronary artery disease. 3. Previous percutaneous transluminal coronary angioplasty stent. 4. Hypertension. 5. Hyperlipidemia. HOSPITAL COURSE: Mrs. Chakraborty presented with anginal symptomatology received Imdur in addition to her current medications, had no further angina, was discharged home with the addition of Imdur 30 mg every day. Will follow up with [facility] as previously scheduled. TRANSINT:[id number] Voice Confirmation ID: [id number] DOCUMENT ID: [id number] SEUN BLACKMON MD at 0928 CC: [id number] DICTATION DATE: 01/15/19 1210 CAPTAIN WAITER/WAITRESS: 01/16/19 0056 DIS IN 01/15/19 [facility] [address] [place] [address]
--- NOTE | 2019-01-17 09:28 | HP ---
PATIENT: CARTER CHAKRABORTY MEDICAL RECORD: [id number] ACCOUNT: [id number] LOCATION:[address] : 56 ADMISSION DATE: 01/14/19 PCP: SADA SOLITARIO DO HISTORY AND PHYSICAL EXAMINATION ADMITTING DIAGNOSES: 1. Angina. 2. Coronary artery disease. 3. Recent percutaneous transluminal coronary angioplasty stent. 4. Hypertension. 5. Hyperlipidemia. HISTORY OF PRESENT ILLNESS: Mrs. Chakraborty presents with recurrent chest pain. It is just like that of her previous angina, dull aching heaviness across the anterior chest, worse with exertion. She recently underwent PTCA stent of the LAD and LAD diagonal. She has no other disease. Reviewing the films, there is an excellent result with no significant disease at the end of the procedure. She does have diffuse disease of the circumflex and distal RCA. This may be the etiology of the ongoing angina. PHYSICAL EXAMINATION: CONSTITUTIONAL/GENERAL APPEARANCE: Well nourished, well developed, appears stated age. EYES: Lids and conjunctivae noninjected. No discharge. No pallor. ENT: Lips within normal limit. No cyanosis. No pallor. NECK: Carotid arteries, bilateral normal upstroke. No bruits. No thrills. No jugular venous pressure or distention. CERVICAL LYMPH NODES: Nontender. Nonenlarged. THYROID: Not enlarged. No nodules. CARDIOVASCULAR: Precordial exam, nondisplaced. No heaves or pericardial thrills. Rate and rhythm, regular. Heart sounds, normal S1, normal S2. No S3, no gallop, no rub. Systolic murmur, not heard. Diastolic murmur, not heard. RESPIRATORY: Respiratory effort, unlabored. Normal curvature. No thoracic deformity. No chest wall tenderness. Percussion, resonant. Auscultation, clear. No wheezes, no rales, no rhonchi. ABDOMEN: Soft, nondistended, nontender. No abdominal pain, no vomiting and normal appetite. MUSCULOSKELETAL: No joint tenderness, normal gait, normal tone. SKIN: Warm and dry. OVERALL IMPRESSION: Ongoing angina. We will treat this medically with the addition of a long-acting nitrate. Follow up as previously scheduled. TRANSINT:[id number] Voice Confirmation ID: [id number] DOCUMENT ID: [id number] HISTORY AND PHYSICAL [id number] NEWNAM,CARTER SEUN TURCIOS MD at 0928 CC: [id number] DICTATION DATE: 01/15/19 1209 HEALTH PRACTICE MANAGER: 01/15/19 1220 DIS IN 01/15/19 [facility] [address] [place] [address]
== END 2019-01-15 11:38 | disposition home or self-care (01) ==
LOC: D.ER 17:18 → D.M2 18:41 → OBSVTIME 18:41 → D.M2 01-15 11:38
PROVIDERS: Family Medicine; ADMIT Internal Medicine Interventional Cardiology; ATTEND Internal Medicine Interventional Cardiology
DX: I25.119 Atherosclerotic heart disease of native coronary artery with unspecified angina pectoris (principal); I10 Essential (primary) hypertension; E78.5 Hyperlipidemia, unspecified; Z95.5 Presence of coronary angioplasty implant and graft

== ENCOUNTER 2019-06-08 08:05 | Outpatient (CLI) | payer BC ==
[~2019-06-08] VITALS: Ht 162.6 cm; Wt 79.5 kg
--- NOTE | ~2019-06-08 | HEMODYNAMI ---
PATIENT:CARTER CHAKRABORTY MEDICAL RECORD: [id number] : 56 LOCATION:[facility] ADMISSION DATE: 06/08/19 Generatedon:06/08/201911:22 Patient name: CARTER CHAKRABORTY Patient #: [id number] : 1960 Date of study: 06/08/2019 Page: Of Hemodynamic Procedure Report Patient Data Patient Demographics Procedure consent was obtained First Name: CARTER Gender: Female Last Name: MYLENE : 1960 Middle Initial: TEJAL Age: 58 year(s) Patient #: [id number] Race: SSN: [id number] Additional ID: [id number] Contact details Address: [address] [place] [address] DRIVE State: [place] City: [place] Zip code: [address] Past Medical History Performed procedures and imaging results Date Procedure Procedure Results Comments 01/10/2019 Stress testing Positive->Intermediate with SPECT MPI risk Allergies Allergen Reaction Date Comments Reported Other allergy 06/08/2019 CODEINE, COMPAZINE, HYDROCODONE Admission Admission Data Admission Date: 06/08/2019 Admission Time: 8:05 Arrival Date: 06/08/2019 Arrival Time: 0:00 Admit Source: Other Insurance Payor: Private health insurance [facility] #: [id number] Height (in.): 64 BSA: 1.85 (m2) Height (cm.): 162.56 BMI: 30.1 (kg/m2) Weight (lbs.): 175.36 Weight (kg.): 79.54 Lab Results Lab Result Date: 06/08/2019 Lab Result Time: 0:00 Biochemistry Name Units Result Min Max BUN mg/dl 15 --(--*-)-- 7 18 Creatinine mg/dl 0.9 --(-*--)-- 0.6 1.3 eGFR ml/min 67.18412 *-(----)-- 90 120 NONAFRICAN CBC Name Units Result Min Max Hematocrit % 43.3 --(*---)-- 42 54 Hemoglobin g/dl 14.1 --(*---)-- 13.5 17.5 Procedure Procedure Types Cath Procedure Diagnostic Procedure [facility] w/Coronaries FFR/IVUS FFR Initial FFR Additional Sedation Charges Moderate Sedation up to 30 minutes PCI Procedure Coronary Stent Coronary Stent Initial x2 Hemochron ACT Test Procedure Description Procedure Date Procedure Date: 06/08/2019 Procedure Start Time: 10:44 Procedure End Time: 11:21 Procedure Staff Name Function Elian Talbert MD Performing Physician Xiao Dalal RT Scrub Chadd Cardenas RN Nurse Patria Braun RT Monitor Procedure Data Cath Procedure Fluoroscopy Diagnostic fluoroscopy Total fluoroscopy Time: 8.4 time: 8.4 min min Diagnostic fluoroscopy Total fluoroscopy dose: 851 dose: 851 mGy mGy Contrast Material Contrast Material Type Amount (ml) Isovue 300 117 Entry Location Entry Primary Successful Side Size Upsize Upsize Entry Closure Succes sful Closure Location (Fr) 1 (Fr) 2 (Fr) Remarks Device Remarks Radial Right 6 Fr artery Short Femoral Right 6 Fr Exoseal artery Short Estimated blood loss: 10 ml Diagnostic catheters Device Type Used For End Catheter Placement DIAGNOSTIC [place] 110cm 5 Procedure Fr catheter ([id number]) Procedure Complications No complications Procedure Medications Medication Administration Route Dosage Oxygen etCO2 Nasal cannula 2 l/min Lidocaine 2% added to field 20 Heparin Flush Bag added to field 2 bags (1000units/500ml NS) 0.9% NaCl I.V. 100 ml/hr Zofran I.V. 4 mg Radial Cocktail I.A. 1 syringe (Verapamil 2mg/Nitro 400mcg/Heparin 1500units) Versed I.V. 1 mg Fentanyl I.V. 50 mcg Versed I.V. 1 mg Fentanyl I.V. 50 mcg Versed I.V. 0.5 mg 0.9% NaCl I.V. bolus 250 ml Heparin Bolus I.V. 4000 units Integrilin (Bolus I.V. 7.3 ml 2mg/ml) Plavix P.O. 600 mg Hemodynamics Rest BSA: 1.85 (m2) HGB: 14.1 (g/dl) O2 Consumption: Estimated: 184.01 (ml/min) O2 Co nsumption indexed: Estimated:99.46 (ml/min/m) Heart Rate: 82 (bpm) Snapshots Pre Cath Intra NCS Post Cath Vital Signs Time Heart Resp SPO2 etCO2 NIBP Rhythm Pain Sedation Rate (ipm) (%) (mmHg) (mmHg) Status Level (bpm) 10:30:41 83 14 96 25.3 109/74(91) NSR 0 (11) 10(A) , No pain 10:34:49 80 18 97 30.5 114/73(92) NSR 0 (11) 10(A) , No pain 10:38:57 77 19 95 38.7 103/70(80) NSR 0 (11) 10(A) , No pain 10:43:05 69 15 93 22.3 88/49(64) NSR 0 (11) 9(A) , No pain 10:47:15 73 12 93 33.5 86/44(55) NSR 0 (11) 9(A) , No pain 10:51:19 79 15 93 31.3 84/58(76) NSR 0 (11) 9(A) , No pain 10:55:24 78 14 94 32.7 79/49(70) NSR 0 (11) 9(A) , No pain 10:59:26 80 16 93 32 80/54(68) NSR 0 (11) 10(A) , No pain 11:03:30 79 14 93 33.5 77/50(58) NSR 0 (11) 10(A) , No pain 11:07:31 81 18 92 26.8 86/54(68) NSR 0 (11) 10(A) , No pain 11:11:33 85 13 93 20.1 95/61(73) NSR 0 (11) 10(A) , No pain 11:15:39 84 15 36.5 93/64(75) NSR 0 (11) 10(A) , No pain 11:19:45 82 14 27.6 95/61(70) NSR 0 (11) 10(A) , No pain Medications Time Medication Route Dose Verified Delivered Reason Not es Effectiveness by by 10:35:37 Oxygen etCO2 2 l/min Elian Florentino used for Nasal Gali Cardenas car icer cannula 10:35:45 Lidocaine 2% added 20ml Elian Plummer for local to vial Gali Talbert MD anesthetic field 10:35:52 Heparin Flush added 2 bags Elian Caceresrey used for Bag to Gali Talbert MD procedure (1000units/500ml field NS) 10:36:01 0.9% NaCl I.V. 100 Elian Buffie Per physician ml/hr Gali Cardenas RN 10:36:18 Zofran I.V. 4 mg Elian Florentino Per physician pt states Gali Cardenas RN was nauseated after her last colonoscopy procedure. 10:40:58 Versed I.V. 1 mg Elian Buffie for sedation Gali Cardenas RN 10:41:06 Fentanyl I.V. 50 mcg Elian Buffie for sedation Gali Cardenas RN 10:45:25 Radial Cocktail I.A. 1 Elian Plummer for (Verapamil syringe Gali Talbert MD vasodilation 2mg/Nitro 400mcg/Heparin 1500units) 10:45:31 Versed I.V. 1 mg Elian Buffie for sedation Gali Cardenas RN 10:45:35 Fentanyl I.V. 50 mcg Elian Florentino for sedation Gali Cardenas RN 10:49:18 Versed I.V. 0.5 mg Elian Buffie for sedation Gali Cardenas RN 10:49:34 0.9% NaCl I.V. 250 ml Elian Plummer Per physician bolus Gali Talbert MD 10:54:40 Heparin Bolus I.V. 4000 Elian Florentino for srinivas ified units Gali Cardenas RN anticoagulation with dr talbert 10:56:54 Integrilin I.V. 7.3 ml Elian Florentino for was stan 2.7 (Bolus 2mg/ml) Gali Cardenas RN antiplatelet ml of vial therapy 11:12:31 Plavix P.O. 600 mg Elian Florentino for Gali Cardenas RN antiplatelet therapy Procedure Log Time Note 9:51:52 Informed consent obtained and on chart 9:54:09 Lab Result : Hemoglobin 14.1 g/dl 9:54:09 Lab Result : eGFR NONAFRICAN 67.14308 ml/min 9:54:09 Lab Result : BUN 15 mg/dl 9:54:09 Lab Result : Creatinine 0.9 mg/dl 9:54:09 Lab Result : Hematocrit 43.3 % 9:54:14 Arrival Date: 06/08/2019 12:00:00 AM 9:54:15 Admit Source: Other 9:54:21 Patient Height : 64 inches 9:54:25 Patient Weight : 175.36 lbs 9:54:32 Insurance Payor : Private health insurance 9:55:13 Patient allergic to Other allergyCODEINE, COMPAZINE, HYDROCODONE 9:58:23 Stress Test: yes; abnormal INFERIOR AND APICAL 9:58:34 Lab results completed and on chart. 9:58:40 Procedure Status Elective Heart Cath (OP). 9:58:43 Time tracking: Regular hours (M-F 7:00 - 5:00) 9:58:49 Plan of Care:Hemodynamics will remain stable., Cardiac rhythm will remain stable., Comfort level will be maintained., Respiratory function will remain adequate., Patient/ family verbilizes understanding of procedure., Procedure tolerated without complication., Recovers from procedure without complications.. 10:10:13 H&P Date Dictated: 06/06/2019 Within 30 days and on chart.. 10:10:15 Pre-procedure instructions explained to patient. 10:10:15 Pre-op teaching completed and patient verbalized understanding. 10:10:19 Family unavailable. 10:10:22 Patient NPO since Midnight. 10:15:59 Chadd Cardenas RN sent for patient. Start room use. 10:20:21 Patient received from Pre/Post Procedure Room to CCL 1 Alert and oriented. Tansferred to table in Supine position. 10:29:38 Warm blankets applied, and sangeetha hugger turned on for patient comfort. 10:29:38 Correct patient and procedure confirmed by team. 10:29:39 ECG and BP/O2 sat monitors applied to patient. 10:29:40 Vital chart was started 10:29:41 Baseline sample Acquired. 10:29:48 Rhythm: sinus rhythm 10:29:51 Full Disclosure recording started 10:29:51 - 10:30:00 Is the patient allergic to Iodine/contrast media? No. 10:30:05 Was the patient premedicated? Yes 10:30:16 Is patient on blood thinner?No 10:30:38 Patient diabetic? Yes. 10:30:41 If diabetic: On Metformin? Yes 10:31:07 If on Metformin: Last Dose? 06/06/2019 10:31:10 ----Pre-sedation anethsthesia assessment.---- 10:31:14 Previous problem with sedation/anesthesia? No ? 10:31:19 Snore? Yes 10:31:21 Sleep apnea? No 10:31:24 Deviated septum? No 10:31:27 Opens mouth fully? Yes 10:31:30 Sticks out tongue? Yes 10:31:34 Airway obstruction? No ? 10:31:36 Dentures? No ? 10:31:45 Pre procedure: right dorsailis pedis pulse 2+ Normal; easily identifiable; not easily obliterated 10:31:57 Patient pain scale 5/10 CHEST. 10:32:08 IV patent on arrival in left forearm with 0.9% NaCl at [facility]. 10:32:18 Right Radial & Right Groin area was prepped with chlora-prep and draped in sterile fashion 10:32:23 Alarms reviewed by R. N. 10:32:23 Sharps counted by scrub and verified by R.N. 10:32:30 Use device set Radial Dx or PCI 10:32:32 ACIST Syringe (53626) opened to sterile field. 10:32:34 Medline Cath Pack ([id number]) opened to sterile field. 10:32:36 Bag Decanter (2002) opened to sterile field. 10:32:37 ACIST Hand Control (59181) opened to sterile field. 10:32:37 ACIST Manifold (85139) opened to sterile field. 10:32:38 Tegaderm 4 x 4 (1626W) opened to sterile field. 10:32:39 MBrace Wrist Support ([id number]) opened to sterile field. 10:32:42 EMERALD Guide Wire (883-074) opened to sterile field. 10:32:45 SHEATH 6FR RAIN (2929070) opened to sterile field. 10:35:37 Oxygen 2 l/min etCO2 Nasal cannula was administered by Chadd Cardenas RN; used for procedure; Verbal order read back and verified. 10:35:45 Lidocaine 2% 20ml vial added to field was administered by Elian Talbert MD; for local anesthetic; Verbal order read back and verified. 10:35:52 Heparin Flush Bag (1000units/500ml NS) 2 bags added to field was administered by Elian Talbert MD; used for procedure; Verbal order read back and verified. 10:36:01 0.9% NaCl 100 ml/hr I.V. was administered by Chadd Cardenas RN; Per physician; Verbal order read back and verified. 10:36:18 Zofran 4 mg I.V. was administered by Chadd Cardenas RN; Per physician; pt states was nauseated after her last colonoscopy procedure. Verbal order read back and verified. 10:39:08 SCAI NOT WORKING. 10:39:12 Physician arrived 10:39:13 --------ALL STOP TIME OUT------ 10:39:14 Final Timeout: patient, procedure, and site verified with staff and physician. All members of the team are in agreement. 10:39:16 Right Radial & Right Groin site verified by team. 10:39:22 Fire Safety Assessment: A--An alcohol-based skin anteseptic being used preoperatively., C--Open oxygen or nitrous oxide is being used., D--An ESU, laser, or fiber-optic light is being used. 10:39:28 Physical assessment completed. ASA score P 2 - A patient with mild systemic disease as per Elian Talbert MD. 10:39:35 2) 60-89 Mildly reduced kidney function, and other findings (as for stage 1) point to kidney disease. 10:39:41 Maximum allowable contrast dose (3.7 X eGFR X 0.75)189 ml. 10:39:48 Sedation plan: IV Moderate Sedation Medication:Versed, Fentanyl 10:40:58 Versed 1 mg I.V. was administered by Chadd Cardenas RN; for sedation; Verbal order read back and verified. 10:41:06 Fentanyl 50 mcg I.V. was administered by Chadd Cardenas RN; for sedation; Verbal order read back and verified. 10:44:07 Procedure started. 10:44:15 Local anesthetic to right radial artery with Lidocaine 2% by Elian Talbert MD.INITIAL ACCESS ONLY 10:44:30 A 6 Fr Short sheath was inserted into the Right Radial artery 10:45:25 Radial Cocktail (Verapamil 2mg/Nitro 400mcg/Heparin 1500units) 1 syring e I.A. was administered by Elian Talbert MD; for vasodilation; Verbal order read back and verified. 10:45:31 Versed 1 mg I.V. was administered by Chadd Cardenas RN; for sedation; Verbal order read back and verified. 10:45:32 A DIAGNOSTIC [place] 110cm 5 Fr catheter (779817) was advanced over the wire and used for Procedure. 10:45:35 Fentanyl 50 mcg I.V. was administered by Chadd Cardenas RN; for sedation; Verbal order read back and verified. 10:45:46 Injector settings: Ml/sec: 5, Volume: 15, 10:45:57 LV gram done using CHI 10:46:23 Zero performed for pressure channel P1 10:46:43 EF : 60 % 10:46:57 LCA angiography performed. 10:47:06 Injector settings: Ml/sec: 3, Volume: 6, 10:47:23 [place] Verrata Plus pressure wire (59516K) opened to sterile field. 10:47:32 INFLATOR Merit BasixCompak (FO4686) opened to sterile field. 10:48:24 RCA angiography performed. 10:48:35 Catheter removed. 10:49:18 Versed 0.5 mg I.V. was administered by Chadd Cardenas RN; for sedation; Verbal order read back and verified. 10:49:18 Proceeding to intervention. 10:49:34 0.9% NaCl 250 ml I.V. bolus was administered by Elian Talbert MD; Per physician; Verbal order read back and verified. 10:49:40 GUIDE 6FR XBLAD 3.5 catheter ([id number]) opened to sterile field. 10:50:05 6 Fr XBLAD3.5 guide catheter was inserted over the wire 10:50:12 IFR wire advanced. 10:50:17 FFR/IFR wire advanced. 10:50:33 Zero performed for pressure channel P1 10:51:49 ACC Pre-intervention TRICIA Flow is 3. 10:53:25 mCirc lesion measured at 0.91 with IFR 10:53:32 IFR WIRE REDIRECTED INTO THE RAMUS. 10:54:16 Ramus lesion measured at 0.85 with IFR 10:54:40 Heparin Bolus 4000 units I.V. was administered by Chadd Cardenas RN; for anticoagulation; verified with dr talbert Verbal order read back and verified. 10:55:36 IFR WIRE IS REDIRECTED TO LAD. 10:55:48 mLAD lesion measured at 0.78 with IFR 10:56:19 Pre PCI Site: [place] mLAD has 70% stenosis. 10:56:54 Integrilin (Bolus 2mg/ml) 7.3 ml I.V. was administered by Chadd Cardenas RN; for antiplatelet therapy; wasted 2.7 ml of vial Verbal order read back and verified. 10:58:00 The CONNIE RX 3.5 x 15 stent ([id number]) was advanced then removed because of failure to cross lesion 10:58:12 SHEATH 6FR Alpha (PTA626) opened to sterile field. 10:58:23 CHOICE PT Extra Support 182cm wire ([id number]) opened to sterile field. 10:58:54 Stent catheter was removed intact over wire. 10:58:59 Wire removed. 10:59:00 Guide catheter removed. 10:59:13 Local anesthetic to right femoral artery with Lidocaine 2% by Elian Talbert MD.ADDITIONAL ACCESS 10:59:29 A 6 Fr Short sheath was inserted into the Right Femoral artery 10:59:50 GUIDE 6FR XBLAD 4.0 catheter ([id number]) opened to sterile field. 11:00:43 6 Fr XBLAD4 guide catheter was inserted over the wire 11:00:53 PT [id number] wire advanced. 11:01:09 Wire advanced across lesion. 11:02:02 Place stent Inflation Number: 1 A CONNIE RX 3.5 x 15 stent ([id number]) was prepped and advanced across the Mid LAD . The stent was deployed at 13 ELIE for 0:00 (min:sec) . 11:02:44 Stent catheter was removed intact over wire. 11:04:32 Place stent Inflation Number: 2 A CONNIE RX 2.5 x 34 stent ([id number]) was prepped and advanced across the Mid LAD . The stent was deployed at 15 ELIE for 0:00 (min:sec) . 11:06:20 Stent catheter was removed intact over wire. 11:06:30 Post PCI Site: [place] mLAD has 0% stenosis. 11:06:38 ACC Post-intervention TRICIA Flow is 3. 11:07:04 Pre PCI Site: [place] Ramus has 70% stenosis. 11:07:13 Wire redirected to RAMUS. 11:08:12 Place stent Inflation Number: 1 A CONNIE RX 2.5 x 15 stent ([id number]) was prepped and advanced across the Ramus . The stent was deployed at 11 ELIE for 0:00 (min:sec) . 11:08:23 EXOSEAL 6Fr (EX600) opened to sterile field. 11:09:03 Post PCI Site: [place] Ramus has 0% stenosis. 11:09:09 ACC Post-intervention TRICIA Flow is 3. 11:09:28 ZEPHYR REGULAR TR BAND (172363) opened to sterile field. 11:10:24 Sheath removed intact; hemostasis achieved with Exoseal to the Right Femoral artery. 11:10:28 Procedure ended.(Physican Out) 11:12:29 Contrast amount:Isovue 300 117ml. 11:12:31 Plavix 600 mg P.O. was administered by Chadd Cardenas RN; for antiplatelet therapy; Verbal order read back and verified. 11:12:41 Fluoroscopy time 08.40 minutes. 11:12:48 Fluoroscopy dose: 851 mGy 11:12:48 Flurop Dose total: 851 11:12:58 Dose Area Product 93358 mGy/cm. 11:13:03 Maximum allowable dose exceeded? No. 11:13:05 Sharps counted by scrub and verified by R.N. 11:13:12 ACT drawn and resulted at out of range high seconds. (normal therapeuti c range 180-240 seconds). 11:14:14 ACC Post-intervention TRICIA Flow is 3. 11:14:48 [place] band inflated with 10cc of air. 11:14:50 Insertion/operative site no bleeding no hematoma. 11:14:56 Post-op/insertion site Right Femoral artery dressed using a 4 x 4 and Tegaderm. 11:15:03 Post right radial artery:stable 11:15:14 Post-procedure physical assessment completed. ASA score P 2 - A patient with mild systemic disease as per Elian Talbert MD. 11:15:19 Post procedure rhythm: unchanged. 11:15:23 Estimated blood loss: 10 ml 11:15:24 Post procedure instruction explained to patient.Patient verbalizes understanding. 11:15:25 Patient needs reinforcement of post procedure teaching. 11:16:31 Procedure type changed to Cath procedure, Diagnostic procedure, LHC, LH C w/Coronaries, FFR/IVUS, FFR Initial, FFR Additional, Sedation Charges, Moderate Sedation up to 30 minutes, PCI procedure, Coronary Stent, Coronary Stent Initial x2, Hemochron ACT Test 11:16:34 Procedure and supply charges have been captured, reviewed, submitted an d are correct. 11:20:52 Procedure Complication : No complications 11:20:56 Vital chart was stopped 11:20:58 [facility] Findings: MVD- PCI performed (see procedure note) 11:21:03 Operative report dictated upon procedure completion. 11:21:04 See physician's report for complete and final results. 11:21:06 Report given to Pre/Post Procedure Room. 11:21:10 Patient transfered to Pre/Post Procedure Room with Stretcher. 11:21:12 Procedure ended. 11:21:12 Full Disclosure recording stopped 11:21:20 ACC-PCI Only Patient was given prescriptions, or instructed by Elian Talbert MD to start/continue the following medications upon discharge: Plavix 11:21:21 End room use (Document Last) Intervention Summary Intervention Notes Time ActionType Lesion and Equipment Used Action# Pressure Duration Attributes 10:58:00 Discard CONNIE RX 3.5 x Stent 15 stent ([id number]) 11:02:02 Place stent Mid LAD CONNIE RX 3.5 x 1 13 00:00 15 stent ([id number]) 11:04:32 Place stent Mid LAD CONNIE RX 2.5 x 2 15 00:00 34 stent ([id number]) 11:08:12 Place stent Ramus CONNIE RX 2.5 x 1 11 00:00 15 stent ([id number]) Device Usage Item Name Manufacture Quantity Catalog Number Hospital Part Current Minimal Lot# / Charge Number Stock Stock Serial# Code ACIST Syringe Acist 1 07774 580971 638435 888153 20 (80962) Spoqa Medline Cath Medline 1 [id number] 318487 89471 979683 5 Pack ([id number]) Bag Decanter Microtek 1 932560 83539 051545 5 (2001S) Medical Inc. ACIST Hand Acist 1 09866 726507 640531 681912 5 Control Medical (61613) Systems Inc ACIST Manifold Acist 1 97910 576722 541860 007763 5 (29147) Medical Systems Inc Tegaderm 4 x 4 3M 1 1626W 238604 296074 800388 5 (1626W) MBrace Wrist Advanced 1 140-0250-00 921428 37978 758996 5 Support Vascular (742203227) Dynamics EMERALD Guide Cardinal 1 502-455 626466 464752 522758 5 Wire (502455) Health SHEATH 6FR Cardinal 1 2069648 397199 8466695 447655 5 RAIN (3221175) Health DIAGNOSTIC Terumo 1 40-5013 052740 935701 607719 5 [place] 110cm 5 Fr catheter (806580) [place] 1 45785X 829017 082567987 357819 5 Verrata Plus pressure wire (81686G) INFLATOR Merit Merit 1 AC8277 272787 253235 606175 15 BasixiSnap Medical (OM8834) GUIDE 6FR Cardinal 1 18211666 751133 987760 599787 10 XBLAD 3.5 Health catheter (74841426) CONNIE RX 3.5 x Medtronic 1 [id number] 070959 5842433 457436 5 [id number] 15 stent ([id number]) SHEATH 6FR Terumo 1 UVD971 465375 658145 034079 40 Alpha (VPO282) CHOICE PT [place] 1 [id number] 636745 323754 039664 5 Extra Support Scientific 182cm wire ([id number]) GUIDE 6FR Cardinal 1 19976339 019294 833228 612314 3 XBLAD 4.0 Health catheter (45030446) CONNIE RX 2.5 x Medtronic 1 [id number] 695116 2603851 888757 5 [id number] 34 stent ([id number]) CONNIE RX 2.5 x Medtronic 1 [id number] 096739 1003010 482085 5 [id number] 15 stent ([id number]) EXOSEAL 6Fr Cardinal 1 EX600 000159 074359 444669 10 (EX600) Health ZEPHYR REGULAR Cardinal 1 450670 477515 7568783 683590 5 TR [facility] Provigent (670163) Signature Audit [place] Stage Time Signature Unsigned Intra-Procedure 06/08/2019 Patria 11:21:42 AM Aparna RT(R) (CV) Intra-Procedure 06/08/2019 Chadd Cardenas RN 11:22:16 AM Intra-Procedure 06/08/2019 Elian Talbert 11:22:[address] [address]
--- NOTE | ~2019-06-08 | OP ---
PATIENT NAME: CARTER CHAKRABORTY MEDICAL RECORD: [id number] LOCATION:D.CAT ADMISSION DATE: SURGEON: SEUN BLACKMON MD DATE OF OPERATION: 06/08/2019 PROCEDURES: 1. PTCA stent LAD. 2. PTCA stent ramus intermedius. 3. IFR LAD. 4. IFR ramus intermedius. 5. IFR left circumflex. 6. Left heart catheterization. 7. Selective coronary angiography. 8. Left ventriculogram. INDICATION: Angina and coronary artery disease. PROCEDURE PERFORMED: After informed consent was obtained and after a detailed description of risks, benefits as well as alternative therapies, the patient elected to proceed with angiogram and angioplasty. The right femoral area was prepped and draped in normal sterile fashion. Right femoral artery was cannulated via modified Seldinger technique with placement of 6-Romansh sheath. All catheters exchanged through this sheath. FINDINGS: Left ventriculogram was performed in standard 30-degree CHI view, reveals good cardiac wall motion, ejection fraction estimated at 60%. SELECTIVE CORONARY ANGIOGRAPHY: 1. Left main is with no significant angiographic disease. 2. Left anterior descending has previously placed stent with greater than 70% in-stent restenosis and a lesion as well proximally. IFR was abnormal in the LAD. 3. Ramus intermedius has a 70% stenosis at the ostium. An IFR is abnormal. 4. Left circumflex has [id number]-[id number] irregularities. IFR is normal. 5. Right coronary has mild irregularities, but no flow-limiting stenosis. PTCA STENT OF THE LAD: Stents used were 3.5 x 15 and 2.5 x 34 both [place]o stents. Result was 0% residual stenosis. PTCA STENT OF THE RAMUS INTERMEDIUS: The stent used was a 2.5 x 15 mm [place]o. Result was 0% residual stenosis. OVERALL IMPRESSION: Successful percutaneous transluminal coronary angioplasty stent of the left anterior descending and ramus intermedius, both going from greater than 70% initial stenosis with abnormal IFR to 0% residual. TRANSINT:[id number] Voice Confirmation ID: [id number] DOCUMENT ID: [id number] OPERATIVE REPORT [id number] CARTER CHAKRABORTY SEUN BLACKMON MD CC: [id number] DICTATION DATE: 06/08/19 111 PACKAGING ASSOCIATE: 06/08/19 1154 [facility] [address] [place] [address]
[~2019-06-08 08:05] MED LIST changes: +BAYER CHEWABLE81 MG PO; +ISOSORBIDE MONO30 M1 PO
[2019-06-08] MEDS ORDERED: TOPROL XL25 MG PO (08:38)
[2019-06-08] MEDS ORDERED: SYNTHROID88 MCG PO (08:39)
[2019-06-08] MEDS ORDERED: FEXOFENADINE H180 MG PO (08:41)
[2019-06-08 08:53] VITALS: BP 119/80; Ht 162.6 cm; Wt 79.5 kg
[2019-06-08 09:07] LABS: BASOPHILS 0.7 % (0-2); EOSINOPHILS 2.6 % (0-7); HEMATOCRIT 43.3 % (36.0-48.0); HEMOGLOBIN 14.1 g/dL (12-16); IMMATURE GRANULOCYTES 0.5 % (0-5); LYMPHOCYTES 24.7 % (15-50); MCHC 32.6 g/dL (31.0-37.0); MCV 95.2 fL (80.0-100.0); MEAN PLATELET VOLUME 9.3 fL (7.4-10.4); MONOCYTES 8.2 % (2-11); NEUTROPHILS 63.3 % (40-80); RBC 4.55 10x6/uL (4.00-5.40); RDW 13.7 % (11.5-14.5); WBC 5.8 10x3/uL (4.8-10.8)
[2019-06-08 09:11] LABS: PLATELET COUNT 234 10x3/uL (130-400)
[2019-06-08 09:26] LABS: ANION GAP 16.1 mmol/L (8-16); CALCIUM 8.6 mg/dL (8.5-10.1); CARBON DIOXIDE 21.8 mmol/L (21.0-32.0); CHOL - HDL RATIO 3.2 ratio (2.3-4.1); CREATININE - SERUM 0.9 mg/dL (0.6-1.3); LDL-HDL RATIO 1.5 ratio (1.5-3.5); POTASSIUM - SERUM 3.9 mmol/L (3.5-5.1)
[2019-06-08] MEDS ORDERED: PLAVIX75 MG PO (11:26)
--- NOTE | 2019-06-08 11:30 | NUR ---
REC'D TO ROOM 7 VIA STRETCHER FROM RISK MANAGER. MONITORS ESTAB. PT WITH NAUSEA - DR. BLACKMON AWARE NEW ORDERS REC'D. SEE RECOVERY MANAGER. ALARMS ON AND C/L IN REACH.
--- NOTE | 2019-06-08 11:45 | NUR ---
R GROIN SITE SOFT, NO S/S BLEEDING OR HEMATOMA, R WRIST SITE C/D/I, HAND WARM. PT REPORTS "LESS NAUSIATED". VSS. ALARMS ON AND C/L IN REACH.
--- NOTE | 2019-06-08 12:14 | NUR ---
DR. BLACKMON AT TO UPDATE PT. R GROIN AND R WRIST SITES C/D/I, NO S/S OF BLEEDING OR HEMATOMA. SBP 86, MAP 61 - FLUIDS OPEN PER MD ORDER - PT IS ALERT AND ASYMPTOMATIC. WILL CONT CLOSE MONITORING.
--- NOTE | 2019-06-08 12:30 | NUR ---
PT RESTING QUIETLY. R GROIN AND R WRIST SITES C/D/I - NO S/S BLEEDING OR HEMATOMA. SBP 90 WITH MAP 65. ALARMS ON AND C/L IN REACH.
--- NOTE | 2019-06-08 12:45 | NUR ---
20\20\20 GI COCKTAIL GIVEN PER MD ORDER. PT DENIES PAIN OR NEEDS. R GROIN AND R WRIST SITES C/D/I. ALARMS ON AND C/L IN REACH.
--- NOTE | 2019-06-08 13:12 | NUR ---
SPOKE WITH PT , UPDATE GIVEN AND PLAN FOR PT D/C AT 1530 PT RESTING QUIETLY, NO N/V. BOTH SITES C/D/I, NO S/S BLEEDING OR HEMATOMA.
--- NOTE | 2019-06-08 13:45 | NUR ---
R GROIN AND WRIST SITES C/D/I, NO S/S BLEEDING OR SWELLING. VSS. PT TAKING SIPS OF SPRITE. DENIES NEEDS. C/L IN REACH.
--- NOTE | 2019-06-08 14:36 | NUR ---
R GROIN SITE SOFT, C/D/I. HOB ELEVATED. R WRIST SITE C/D/I. SANDWICH TRAY PROVIDED. ALARMS ON AND C/L IN REACH.
--- NOTE | 2019-06-08 14:45 | NUR ---
2CC AIR REMOVED FROM Z BAND, NO S/S BLEEDING OR HEMATOMA.
--- NOTE | 2019-06-08 15:00 | NUR ---
TOTAL 5CC AIR REMOVED FROM Z BAND, NO S/S BLEEDING OR HEMATOMA. VSS. R GROIN SITE SOFT, C/D/I.
--- NOTE | 2019-06-08 15:15 | NUR ---
BOTH SITES C/D/I, ALL AIR REMOVED FROM Z BAND, NO S/S BLEEDING OR HEMATOMA. PIV D/C'D INTACT, DSG APPLIED. PT ALLOWED UP TO GET DRESSED.
--- NOTE | 2019-06-08 15:30 | NUR ---
ALL DISCHARGE INSTRUCTIONS REVIEWED WITH PT - VERBALIZES UNDERSTANDING . PT D/C'D TO PRIVATE VEHICLE WITH - PT HAS ALL PAPERWORK AND BELONGINGS.
== END 2019-06-08 15:30 | disposition home or self-care (01) ==
LOC: D.CATH 08:05
PROVIDERS: ATTEND Internal Medicine Interventional Cardiology
DX: I25.119 Atherosclerotic heart disease of native coronary artery with unspecified angina pectoris (principal); R06.02 Shortness of breath

== ENCOUNTER → 2019-08-08 11:46 | Outpatient (CLI) | payer BC ==
[2019-06-08 08:53] VITALS: BMI 30.1
[~2019-08-08 11:46] MED LIST changes: +FEXOFENADINE H180 MG PO; +SYNTHROID88 MCG PO; +TOPROL XL25 MG PO
== END | disposition home or self-care (01) ==
LOC: D.US 11:46
PROVIDERS: ATTEND Internal Medicine Cardiovascular Disease
DX: R09.89 Other specified symptoms and signs involving the circulatory and respiratory systems (principal)

== ENCOUNTER → 2019-08-15 07:29 | Outpatient (CLI) | payer BC ==
[2019-06-08 08:53] VITALS: BMI 30.1
[~2019-08-15 07:29] MED LIST changes: +JARDIANCE10 MG PO; +RANEXA500 MG PO
== END | disposition home or self-care (01) ==
LOC: D.CT 07:29
PROVIDERS: ATTEND Internal Medicine Cardiovascular Disease
DX: R09.89 Other specified symptoms and signs involving the circulatory and respiratory systems (principal); R94.39 Abnormal result of other cardiovascular function study

== ENCOUNTER 2019-08-15 14:28 | Observation (INO) | payer BC ==
[~2019-08-15] VITALS: Ht 162.6 cm; Wt 77.7 kg
[~2019-08-15 14:28] MED LIST changes: -JARDIANCE10 MG PO; -RANEXA500 MG PO
[2019-08-15 14:52] LABS: BASOPHILS 0.5 % (0-2); EOSINOPHILS 3.3 % (0-7); HEMOGLOBIN 13.8 g/dL (12-16); IMMATURE GRANULOCYTES 0.7 % (0-5); LYMPHOCYTES 23.3 % (15-50); MCH 31.8 pg (26.0-34.0); MCHC 32.9 g/dL (31.0-37.0); MCV 96.8 fL (80.0-100.0); MEAN PLATELET VOLUME 9.2 fL (7.4-10.4); MONOCYTES 10.5 % (2-11); NEUTROPHILS 61.7 % (40-80); PLATELET COUNT 196 10x3/uL (130-400); RBC 4.34 10x6/uL (4.00-5.40); RDW 13.9 % (11.5-14.5); WBC 4.3 10x3/uL (4.8-10.8)
[2019-08-15 15:12] LABS: APTT 27.7 SECONDS (22.8-39.4); INR 0.98 (0.85-1.17)
[2019-08-15 15:16] LABS: CALC OSMOLALITY 280 mosm/kg (275-300); CALCIUM 8.6 mg/dL (8.5-10.1); CARBON DIOXIDE 23.4 mmol/L (21.0-32.0); CHLORIDE - SERUM 103 mmol/L (98-107); CREATININE - SERUM 1.1 mg/dL (0.6-1.3); GLUCOSE 214 mg/dL (74-106); POTASSIUM - SERUM 4.1 mmol/L (3.5-5.1); SODIUM 137 mmol/L (136-145); UREA NITROGEN 16 mg/dL (7-18); eGFR NON AFRICAN AMERICAN 53 mL/min (90-120)
[2019-08-15 15:35] LABS: ALBUMIN 3.6 g/dL (3.4-5.0); ALKALINE PHOSPHATASE 102 U/L (30-120); ALT (SGPT) 32 U/L (10-68); BILIRUBIN - TOTAL 0.38 mg/dL (0.2-1.3); CKMB 0.7 U/L (0.0-3.6); CREATINE KINASE 60 UL (21-215); MAGNESIUM - SERUM 1.8 mg/dL (1.8-2.4)
[2019-08-15 15:36] LABS: TROPONIN-I < 0.017 ng/mL (0.000-0.060)
[2019-08-15 18:36] VITALS: BP 106/65; Ht 162.6 cm; Wt 77.7 kg
[2019-08-15] MEDS ORDERED: LEVOXYL75 MCG PO (19:36)
[2019-08-15] MEDS ORDERED: JARDIANCE10 MG PO (19:37)
[2019-08-15] MEDS ORDERED: RANEXA500 MG PO (19:38)
[2019-08-15 22:05] VITALS: BP 99/62
[2019-08-16 00:30] VITALS: BP 108/69
[2019-08-16 03:52] LABS: BASOPHILS 0.7 % (0-2); EOSINOPHILS 4.4 % (0-7); HEMATOCRIT 41.8 % (36.0-48.0); HEMOGLOBIN 13.5 g/dL (12-16); IMMATURE GRANULOCYTES 0.2 % (0-5); LYMPHOCYTES 36.5 % (15-50); MCH 31.7 pg (26.0-34.0); MCHC 32.3 g/dL (31.0-37.0); MCV 98.1 fL (80.0-100.0); MEAN PLATELET VOLUME 9.3 fL (7.4-10.4); MONOCYTES 10.7 % (2-11); NEUTROPHILS 47.5 % (40-80); PLATELET COUNT 202 10x3/uL (130-400); RBC 4.26 10x6/uL (4.00-5.40); RDW 14.1 % (11.5-14.5); WBC 4.3 10x3/uL (4.8-10.8)
[2019-08-16 04:11] LABS: ALBUMIN 3.6 g/dL (3.4-5.0); ALKALINE PHOSPHATASE 91 U/L (30-120); ALT (SGPT) 30 U/L (10-68); BILIRUBIN - TOTAL 0.39 mg/dL (0.2-1.3); CALC OSMOLALITY 279 mosm/kg (275-300); CALCIUM 8.5 mg/dL (8.5-10.1); CHLORIDE - SERUM 105 mmol/L (98-107); GLUCOSE 121 mg/dL (74-106); MAGNESIUM - SERUM 1.9 mg/dL (1.8-2.4); POTASSIUM - SERUM 3.8 mmol/L (3.5-5.1); PROTEIN - SERUM 6.6 g/dL (6.4-8.2); SODIUM 139 mmol/L (136-145); TROPONIN-I < 0.017 ng/mL (0.000-0.060); UREA NITROGEN 15 mg/dL (7-18); eGFR NON AFRICAN AMERICAN 60 mL/min (90-120)
[2019-08-16 05:16] VITALS: BP 102/65
[2019-08-16 11:00] VITALS: BP 120/81
--- NOTE | 2019-08-16 16:23 | NUR ---
IV AND TELEMETRY DCD. DC PLANS GIVEN. UNDERSTANDING VOICED.
== END 2019-08-16 16:24 | disposition home or self-care (01) ==
LOC: D.ER 14:28 → D.M2 16:04 → OBSVTIME 16:31 → D.M2 08-16 16:24
PROVIDERS: Family Medicine; ADMIT Family Medicine; ATTEND Family Medicine
DX: I25.110 Atherosclerotic heart disease of native coronary artery with unstable angina pectoris (principal); I10 Essential (primary) hypertension; E78.5 Hyperlipidemia, unspecified; R07.9 Chest pain, unspecified; E11.65 Type 2 diabetes mellitus with hyperglycemia; D72.819 Decreased white blood cell count, unspecified; F32.9 Major depressive disorder, single episode, unspecified; K50.90 Crohn's disease, unspecified, without complications; E03.9 Hypothyroidism, unspecified

== ENCOUNTER → 2019-09-12 09:33 | Outpatient (CLI) | payer BC ==
[2019-08-15 18:36] VITALS: BMI 24.0
[~2019-09-12 09:33] MED LIST changes: +JARDIANCE10 MG PO; +RANEXA500 MG PO
== END | disposition home or self-care (01) ==
LOC: D.MRI 09:33
PROVIDERS: ATTEND Family Medicine
DX: R51 Headache (principal)

== ENCOUNTER → 2019-10-31 10:47 | Outpatient (CLI) | payer BC ==
[2019-08-15 18:36] VITALS: BMI 24.0
== END | disposition home or self-care (01) ==
LOC: D.HCCARDIO 10:47
PROVIDERS: ATTEND Internal Medicine Cardiovascular Disease
DX: I25.10 Atherosclerotic heart disease of native coronary artery without angina pectoris (principal)

== ENCOUNTER → 2019-11-30 07:21 | Outpatient (CLI) | payer BC ==
[2019-08-15 18:36] VITALS: BMI 24.0
== END | disposition home or self-care (01) ==
LOC: D.US 07:21
PROVIDERS: ATTEND Family Medicine
DX: E27.9 Disorder of adrenal gland, unspecified (principal)

== ENCOUNTER → 2019-12-19 07:28 | Outpatient (CLI) | payer BC ==
[2019-08-15 18:36] VITALS: BMI 24.0
== END | disposition home or self-care (01) ==
LOC: D.MRI 07:28
PROVIDERS: ATTEND Family Medicine
DX: E27.9 Disorder of adrenal gland, unspecified (principal)